=== PATIENT | female | born 1965 | race Caucasian/White ===

== ENCOUNTER 2023-11-25 08:28 | Day surgery (SDC) | payer BC, SELFPAY ==
[2023-11-23 10:02] VITALS: BMI 29.3
[2023-11-25 09:19] VITALS: BMI 27.9
[2023-11-25 09:25] VITALS: BP 104/61; PULSE 62; RESP 16; TEMP 37.2; O2SAT 99
--- NOTE | 2023-11-25 09:25 | HO.ANESPROP2 ---
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 Past Medical History Medical History (Updated 11/23/23 @ 10:03 by Peace Dacosta RN) Cervical disc disease Elevated cholesterol Renal calculi Family History Family history of problems with anesthesia: No Surgical History Surgical History (Updated 11/23/23 @ 10:03 by Peace Dacosta RN) Hx of carpal tunnel repair Hx of tonsillectomy Hx of hysterectomy Hx of lithotripsy H/O colonoscopy History of Problems with Anesthesia: Yes (Sensitive to anesthesia ) Social History Social History (Updated 11/23/23 @ 10:04 by Peace Dacosta RN) Patient Tobacco Use Status: Current everyday Tobacco user Tobacco use type: Cigarette Meds Allergies Allergy/AdvReac Type Severity Reaction Status Date / Time amoxicillin Allergy Unknown Unknown Verified 11/23/23 10:02 Home Medications Medication Instructions Recorded Confirmed Last Taken Type atorvastatin 80 mg tablet 80 mg PO BEDTIME 11/23/23 11/25/23 Unknown History gabapentin 300 mg capsule 300 mg DAILY 11/23/23 11/25/23 Unknown History Exam Height,Weight and Vital Signs: Height 5 ft Weight 64.864 kg Vital Signs Temp Pulse Resp BP Pulse Ox O2 Del Method 11/25/23 09:25 98.9 F 62 16 104/61 99 Room Air Airway Mallampati Class: II TM Dist: >3cm Neck ROM: Full Partial: Upper Loose/Missing/Broken Teeth: Yes (Partial upper. Denies broken or loose teeth) Heart: RRR Lungs: Occasional wheeze. Does not use inhalers Assessment and Plan Assessment Anesthesia Assessment: Anesthesia Plan Discussed and Chart Reviewed Final Anesthetic Review Family History of Problems with Anesthesia: No History of Problems with Anesthesia: Yes (Sensitive to anesthesia ) NPO: Yes ASA Class: II Final Preanesthetic Review: No Changes in Pt Med Stat, Meds/Allgs Chart Reviewed, Consent Obtained/Reviewed and Anes Risks/Benef Reviewed Patient Risk: Low Procedure Risk: Low Assessment/Block/Sedation in SS: Assess/Block/Sedation-SS Anesthetic Plan Anesthetic Plan: MAC: and TIVA Disposition: Standard PACU
--- NOTE | 2023-11-25 09:50 | P.HPSUR_ITS ---
Pre-Procedural Eval Section A - 24 Hr Update-Section A only Date of Service: 11/25/23 Section B - Complete if H&P > 30 days Chief Complaint: Encounter for screening for malignant neoplasm of Details of Present Illness: see H&P no changes Relevant Family History (Specify if Yes): No Relevant Social History: None Present Medications: see Short Stay Collaborative assessment Medical History: No relevant PMH History of Previous Operations: No relevant previous surgery Allergies: Allergies Allergy/AdvReac Type Severity Reaction Status Date / Time amoxicillin Allergy Unknown Unknown Verified 11/23/23 10:02 Review of Systems Sugical H&P ROS: Negative: Constitution, Cardiovascular, Respiratory, Neurological, Psychiatric, Hem-Onc, Allergic/Immunologic, Gastrointestinal, Genitourinary, Musculoskeletal, Integumentary, Endocrine and Eyes/ Ears/Nose/Throat Exam Surgical H&P Exam: Normal: HEENT, Normal: Heart, Normal: Lungs, Normal: Extremities, Normal: Abdomen, Normal: Skin and Normal: Neurological Plan Diagnosis/Plan: Unchanged I have reviewed the history and physical and performed a pertinent physical examination on my patient. No changes have occurred unless specified. Time Spent With Patient Time: Total time managing care of this patient today ____ minutes.
[2023-11-25 10:24] VITALS: BP 98/55; PULSE 72; RESP 18; TEMP 36.6; O2SAT 99
[2023-11-25 10:39] VITALS: BP 115/66; PULSE 57; RESP 16; TEMP 36.6; O2SAT 100
--- NOTE | 2023-11-25 11:35 | OP_ITS ---
DATE OF SERVICE: 11/25/2023 SURGEON: Aaron Rowe MD INDICATIONS: Colon cancer screening and prior history of colon polyps. PREOPERATIVE DIAGNOSIS: POSTOPERATIVE DIAGNOSIS: PROCEDURE PERFORMED: Colonoscopy to the terminal ileum with biopsy. ESTIMATED BLOOD LOSS: COMPLICATIONS: ANESTHESIA: Monitored anesthesia care. ASSISTANTS: SPECIMENS: DESCRIPTION OF PROCEDURE: A history and physical was performed. The risks and benefits of the procedure were explained to the patient, and informed consent was obtained. The patient was placed in the left lateral decubitus position. A digital rectal exam was performed and was found to be normal. The Olympus pediatric video colonoscope was introduced into the rectum and advanced to the cecum. The cecum was identified by transillumination, palpation, and identification of ileocecal valve. Examination was performed. The scope was removed. She tolerated the procedure well and was returned to the recovery area in stable condition. FINDINGS: The terminal ileum was examined and appeared normal. The visualized colonic mucosa was normal. The quality of the prep was good except in the right colon and cecum where there was some retained stool. This was washed and suctioned as best possible. Three polyps were identified and removed with a biopsy forceps, all were less than 10 mm, one was located at 40 cm and 2 were in the rectum. No other polyps were identified. Retroflexed examination showed internal hemorrhoids. External hemorrhoids were noted on withdrawal of the colonoscope. IMPRESSION: Colon polyps. RECOMMENDATION: Follow up the biopsy results. MD TACO Kelly/KATHYL / [id number]
== END 2023-11-25 11:17 | disposition home or self-care (01) ==
PROVIDERS: PCP Nurse Practitioner Family; Visit Provider Internal Medicine Gastroenterology
PROC: 0DJD8ZZ Inspection of Lower Intestinal Tract, Via Natural or Artificial Opening Endoscopic (ICD-10-PCS; CPT 45378; principal; 2023-11-25 10:00)
DX: Z12.11 Encounter for screening for malignant neoplasm of colon (principal); Z86.010 Personal history of colon polyps; K63.5 Polyp of colon; K62.1 Rectal polyp; K64.8 Other hemorrhoids; K64.4 Residual hemorrhoidal skin tags; E78.5 Hyperlipidemia, unspecified; Z87.442 Personal history of urinary calculi; Z79.899 Other long term (current) drug therapy; Z88.1 Allergy status to other antibiotic agents; F17.210 Nicotine dependence, cigarettes, uncomplicated
CPT/HCPCS: 45380; 88305; J2704